=== PATIENT | female | born 1975 | race Caucasian/White ===

== ENCOUNTER 2020-08-30 07:19 | Outpatient (CLI) | payer OTHER ==
[~2020-08-30 07:19] MED LIST: ASPI-496 PO; DOCU-131 PO; IBUP-1223 PO; NIFE30TA2 PO; OXYC1TAB14 PO; PNV1TABL26 PO
[2020-08-30] MEDS ORDERED: NORE0.3519 PO (08:01)
== END 2020-08-30 23:59 | disposition home or self-care (01) ==
LOC: STAR 07:19
PROVIDERS: ATTEND Surgery
DX: Z02.9 Encounter for administrative examinations, unspecified (principal)

== ENCOUNTER 2020-09-03 15:32 | Outpatient (CLI) | payer OTHER ==
[~2020-09-03 15:32] MED LIST changes: +NORE0.3519 PO
== END 2020-09-03 23:59 | disposition home or self-care (01) ==
LOC: STAR 15:32
PROVIDERS: ATTEND Surgery
DX: Z20.822 Contact with and (suspected) exposure to COVID-19 (principal)
CPT/HCPCS: U0003; U0005

== ENCOUNTER 2020-09-09 08:43 | Day surgery (SDC) | payer OTHER ==
[~2020-09-09] VITALS: Ht 154.9 cm; Wt 83.7 kg
[~2020-09-09 08:43] MED LIST changes: +ACETAMINOPHEN 325 MG TABLET PO PRN; +DIAZEPAM 5 MG/ML, 2ML IVPush PRN; +DIPHENHYDRAMINE 50 MG/ML, 1ML IVPush PRN; +EPHEDRINE 50 MG/ML, 1ML IVPush PRN; +FENTANYL PF 100 MCG/2ML IV PRN; +HALOPERIDOL 5 MG/ML IV PRN; +HYDROmorphone 1 MG/ML, 1ML INJ IVPush PRN; +KETOROLAC 30 MG/1 ML IVPush PRN; +LABETALOL 5MG/ML, 20ML IV PRN; +MEPERIDINE/PF 25MG/0.5ML IVPush PRN; +METOCLOPRAMIDE 5 MG/ML, 2ML IVPush PRN; +METOPROLOL 1 MG/ML, 5ML IV PRN; +ONDANSETRON 2MG/ML, 2ML IVPush PRN; +OXYcodone 5 MG/5 ML ORAL.SOL UDC PO PRN; +PROMETHAZINE 25 MG/ML, 1ML IVPush PRN; +hydrALAzine 20 MG/ML, 1ML IV PRN
[2020-09-09] MEDS ORDERED: HYDROmorphone 1 MG/ML, 1ML INJ ONE (10:39)
[2020-09-09] MEDS ORDERED: FENTANYL PF 100 MCG/2ML ONE (10:39)
[2020-09-09] MEDS ORDERED: MIDAZOLAM 1 MG/ML, 2ML ONE (10:39)
[2020-09-09] MEDS ORDERED: CHLORHEXIDINE 15 ML UDC ONE (10:42)
[2020-09-09] MEDS ORDERED: LIDOCAINE 1%-EPI 1:100K, 20ML ONE (10:43)
[2020-09-09] MEDS ORDERED: SODIUM BICARBONATE 4.2%, 5ML ONE (10:43)
[2020-09-09] MEDS ORDERED: CHLORHEXIDINE 15 ML UDC PO ONE (11:00)
[2020-09-09] MEDS ORDERED: LACTATED RINGERS 1,000 ML IV SCH (11:00)
[2020-09-09 11:09] VITALS: BP 122/77
[2020-09-09] MEDS ORDERED: EPINEPHRINE 1 MG/ML, 1ML ONE (12:00)
[2020-09-09] MEDS ORDERED: BUPIVACAINE/PF 0.5% ONE (12:00)
[2020-09-09] MEDS ORDERED: DEXAMETHASONE 4 MG/ML, 1ML ONE (12:17)
[2020-09-09] MEDS ORDERED: PHENYLEPHRINE 10 MG/ML ONE (12:17)
[2020-09-09] MEDS ORDERED: CEFAZOLIN 1,000 MG ONE (12:17)
[2020-09-09] MEDS ORDERED: PROPOFOL 10 MG/ML, 20ML ONE (12:17)
[2020-09-09] MEDS ORDERED: ONDA4TAB7 PO (13:28)
== END 2020-09-09 15:41 | disposition home or self-care (01) ==
LOC: SDC 08:43 → EDSTATUS 11:30 → OUT 15:41
PROVIDERS: ATTEND Surgery
DX: D48.61 Neoplasm of uncertain behavior of right breast (principal); D05.11 Intraductal carcinoma in situ of right breast; E66.9 Obesity, unspecified; Z68.33 Body mass index [BMI] 33.0-33.9, adult; Z79.899 Other long term (current) drug therapy; Z87.891 Personal history of nicotine dependence; Z80.3 Family history of malignant neoplasm of breast
CPT/HCPCS: 19125; 19281; 76098; 81025; 88307; J0171; J0690; J1100; J1170; J2250; J2370; J2704; J3010; J7120

== ENCOUNTER 2020-10-01 08:30 | Outpatient (CLI) | payer OTHER ==
[~2020-10-01 08:30] MED LIST changes: -ACETAMINOPHEN 325 MG TABLET PO PRN; -DIAZEPAM 5 MG/ML, 2ML IVPush PRN; -DIPHENHYDRAMINE 50 MG/ML, 1ML IVPush PRN; -EPHEDRINE 50 MG/ML, 1ML IVPush PRN; -FENTANYL PF 100 MCG/2ML IV PRN; -HALOPERIDOL 5 MG/ML IV PRN; -HYDROmorphone 1 MG/ML, 1ML INJ IVPush PRN; -KETOROLAC 30 MG/1 ML IVPush PRN; -LABETALOL 5MG/ML, 20ML IV PRN; -MEPERIDINE/PF 25MG/0.5ML IVPush PRN; -METOCLOPRAMIDE 5 MG/ML, 2ML IVPush PRN; -METOPROLOL 1 MG/ML, 5ML IV PRN; +ONDA4TAB7 PO; -ONDANSETRON 2MG/ML, 2ML IVPush PRN; +OXYC1TAB12 PO; -OXYC1TAB14 PO; -OXYcodone 5 MG/5 ML ORAL.SOL UDC PO PRN; -PROMETHAZINE 25 MG/ML, 1ML IVPush PRN; -hydrALAzine 20 MG/ML, 1ML IV PRN
== END 2020-10-01 23:59 | disposition home or self-care (01) ==
LOC: ROC 08:30
PROVIDERS: ATTEND Radiology Radiation Oncology
DX: D05.11 Intraductal carcinoma in situ of right breast (principal)
CPT/HCPCS: 99204; G0463